=== PATIENT | male | born 1985 | race Caucasian/White ===

== ENCOUNTER 2017-09-03 05:59 | Day surgery (SDC) | payer OTHER ==
[2017-09-03] MEDS ORDERED: PAXIL10 MG PO (06:26)
[2017-09-03] MEDS ORDERED: TRAZODONE HCL50 MG PO (06:27)
[2017-09-03] MEDS ORDERED: NAPROXEN500 MG PO (06:27)
[2017-09-03] MEDS ORDERED: BACLOFEN10 MG PO (06:27)
--- NOTE | 2017-09-03 08:25 | NUR ---
09/03/17 0825 Ailin Swanson report from traveling storekeeper. GUARDS AT BEDSIDE. PT ASLEEP.
--- NOTE | 2017-09-04 15:52 | OR ---
[facility] [address], [place] [address] Signed DATE OF OPERATION: 09/03/2017 SURGEON: Yoav Byrd MD PREOPERATIVE DIAGNOSIS: Persistent episodic rectal bleeding. POSTOPERATIVE DIAGNOSIS: Severe ulcerative proctitis. PROCEDURE: Total colonoscopy to cecum with biopsies of low rectum. SURGEON: Yoav Byrd MD ANESTHESIA: Intravenous sedation, propofol infusion, Gavin Chandler CRNA INDICATION: This 32-year-old white man is incarcerated at [facility], and the patient of Dr. Mustapha Rodriguez. He was seen by me on July 26, 2017, with episodic rectal bleeding over the past 2 years. He has no associated pain upon defecation. He notes his paternal grandfather had colon cancer. The patient is also known to have Tourette syndrome and chronic back pain. He has been incarcerated for 16 years overall. He is admitted at this time to undergo colonoscopy. He understands the risks of bleeding, infection, and perforation. FINDINGS: The prep was excellent. Complete colonoscopy was undertaken to the cecum. The colon was entirely normal except for the low rectum, which showed severe ulcerative proctitis. There was no sign of neoplasm. Biopsies were obtained. PROCEDURE IN DETAIL: The patient was brought to the endoscopy suite and placed in lateral decubitus position given intravenous sedation by the major account representative with propofol infusion using full cardiopulmonary monitoring. Digital rectal examination was normal. An Olympus video colonoscope was passed in the rectum and manipulated throughout the colon ultimately intubating the cecum. The cecum was entirely normal. The appendiceal orifice and the ileocecal valve easily identified. Withdrawal of scope was undertaken Electronically Signed By: YOAV BYRD MD 09/04/17 1552 PATIENT NAME: TO BEAR OPERATIVE REPORT DATE OF : 83 PHYSICIAN: YOAV BYRD MD REPORT #: [id number] REPORT IS CONFIDENTIAL AND NOT TO BE RELEASED WITHOUT AUTHORIZATION [facility] [address] [place] [id number] Signed showing no sign of abnormality into the lowest part of the rectum where severe ulcerative proctitis was noted. Retroflexed view was undertaken as well. Reaffirmation that the rectosigmoid itself was normal, but only the low rectum was made. Multiple biopsies were obtained of the abnormal rectal mucosa. The scope was removed and the patient was taken to the recovery room in good condition. CONCLUDING DIAGNOSIS: Ulcerative proctitis. PLAN: Recommend Kris enema 1 IL daily for 7 days. Also initiate mesalamine suppository 500 mg p.o. at bedtime. I would like to see him back in the September [facility] clinic that I will be having. I would additionally check a Chem-8 at the outset of treatment to assure creatinine is normal and that a month or so into therapy. Additionally, we will recommend Flagyl 250 mg p.o. t.i.d. x7 days. MD JUSTINO Zavala/OUSMANE /[id number] cc: Mustapha Rodriguez MD Electronically Signed By: YOAV BYRD MD 09/04/17 1552 PATIENT NAME: TO BEAR VANESSA OPERATIVE REPORT DATE OF : 83 PHYSICIAN: YOAV BYRD MD REPORT #: [id number] REPORT IS CONFIDENTIAL AND NOT TO BE RELEASED WITHOUT AUTHORIZATION
== END 2017-09-03 08:50 | disposition home or self-care (01) ==
LOC: DS 05:59 → OPS 05:59 → DS 06:45 → OPS 06:45
PROVIDERS: Surgery
PROC: 0DBP8ZX Excision of Rectum, Via Natural or Artificial Opening Endoscopic, Diagnostic (ICD-10-PCS; principal; 2017-09-03 06:45)
DX: K51.20 Ulcerative (chronic) proctitis without complications (principal); G40.909 Epilepsy, unspecified, not intractable, without status epilepticus; K51.214 Ulcerative (chronic) proctitis with abscess; K62.89 Other specified diseases of anus and rectum; Z88.1 Allergy status to other antibiotic agents; Z79.899 Other long term (current) drug therapy
CPT/HCPCS: 00810; J2704; J7120

== ENCOUNTER 2019-06-27 19:58 | Emergency (ER) | payer OTHER ==
[~2019-06-27] VITALS: Ht 177.8 cm; Wt 98.9 kg
[~2019-06-27 19:58] MED LIST: BACLOFEN10 MG PO; NAPROXEN500 MG PO; PAXIL10 MG PO; TRAZODONE HCL50 MG PO
[2019-06-27] MEDS ORDERED: LIALDA1.2 GM PO (20:27)
[2019-06-27] MEDS ORDERED: PAMELOR50 MG PO (20:27)
== END 2019-06-27 22:44 | disposition home or self-care (01) ==
LOC: ED 19:58
DX: S02.2XXA Fracture of nasal bones, initial encounter for closed fracture (principal); S00.12XA Contusion of left eyelid and periocular area, initial encounter; S00.81XA Abrasion of other part of head, initial encounter; Y04.8XXA Assault by other bodily force, initial encounter; Z87.891 Personal history of nicotine dependence; Z88.8 Allergy status to other drugs, medicaments and biological substances; Z79.899 Other long term (current) drug therapy
CPT/HCPCS: 70450; 70486